=== PATIENT | female | born 1950 | race Caucasian/White ===

== ENCOUNTER 2020-09-19 07:24 | Outpatient (CLI) | payer MEDICARE, SELFPAY ==
--- NOTE | ~2020-09-19 | MM_ITS ---
EXAMINATION: MM screening [facility] BI w atiya HISTORY: Screening TECHNIQUE: Craniocaudal and mediolateral oblique 3-D tomosynthesis images were obtained and synthetic 2-D images were generated. CAD analysis was submitted and interpreted. COMPARISON: Comparison to multiple prior studies sequentially, with oldest reviewed study dated 01/06. BREAST PARENCHYMAL COMPOSITION: There are scattered areas of fibroglandular density. FINDINGS: There is a new focal asymmetry in the upper aspect of the left breast on MLO view. The righ t breast is stable without evidence for malignancy. IMPRESSION: 1. No focal asymmetry upper aspect of the left breast on MLO view. 2. Additional left spot MLO, MLO and exaggerated CC views recommended. BI-RADS Category 0: Incomplete: Needs additional imaging evaluation. Reviewed, dictated and finalized at location A. NE OILER
== END 2020-09-19 07:25 | disposition home or self-care (01) ==
LOC: ANHIMG 07:29
PROVIDERS: PCP Family Medicine Adolescent Medicine; Visit Provider Family Medicine Adolescent Medicine
DX: Z12.31 Encounter for screening mammogram for malignant neoplasm of breast (principal); R92.8 Other abnormal and inconclusive findings on diagnostic imaging of breast
CPT/HCPCS: 77063; 77067

== ENCOUNTER 2020-10-20 12:05 | Outpatient (CLI) | payer MEDICARE, SELFPAY ==
--- NOTE | ~2020-10-20 | MMUS_ITS ---
EXAMINATION: MM diagnostic mammo unilat LT, US breast LT limited HISTORY: Follow-up left breast asymmetry TECHNIQUE: Additional 3-D tomosynthesis images of the left breast were performed and synthetic 2-D im ages were generated. CAD analysis was submitted and interpreted. High resolution Limited left breast ultrasound was performed. COMPARISON: Comparison to multiple prior studies sequentially, with oldest reviewed study dated 01/10. BREAST PARENCHYMAL COMPOSITION: Breast composed of scattered areas of fibroglandular density. FINDINGS: MAMMOGRAPHIC FINDINGS: There are no suspicious masses, calcifications or architectural distortion to suggest malignancy. ULTRASOUND: Limited left breast ultrasound: Normal heterogeneous echotexture of focal mass. IMPRESSION: 1. No mammographic or sonographic evidence for malignancy in the left breast. 2. Routine yearly screening mammogram and regular clinical breast examination are recommended. BI-RADS Category 2: Benign finding(s). Reviewed, dictated and finalized at location A. E DELIVERY SERVICE DRIVER IMPRESSION: 1. No mammographic or sonographic evidence for malignancy in the left breast. 2. Routine yearly screening mammogram and regular clinical breast examination a re recommended. BI-RADS Category 2: Benign finding(s).
== END 2020-10-20 12:06 | disposition home or self-care (01) ==
LOC: ANHIMG 12:09
PROVIDERS: PCP Family Medicine Adolescent Medicine; Visit Provider Family Medicine Adolescent Medicine
DX: R92.8 Other abnormal and inconclusive findings on diagnostic imaging of breast (principal)
CPT/HCPCS: 76642; 77065

== ENCOUNTER 2021-03-27 09:48 | Emergency (ER) | payer MEDICARE, SELFPAY ==
--- NOTE | 2021-03-27 09:55 | ED.ABDPAIN ---
HPI - Abdominal Pain General Chief Complaint: Abdominal Pain Stated Complaint: Abdominal Pain Time Seen by Provider: 03/27/21 09:55 Source: patient and RN notes reviewed Mode of arrival: ambulatory Limitations: no limitations History of Present Illness HPI narrative: 70-year-old female presents to [facility] with complaints of abdominal pain for the last 24 hours. States she did have a bowel movement this morning.Patient states that she has a partial bowel obstruction History of diabetes, hypertension, high cholesterol. Related Data Home Medications Medication Instructions Recorded Confirmed atorvastatin 20 mg PO DAILY 03/27/21 03/27/21 bimatoprost [Lumigan] 1 drp EACH EYE HS 03/27/21 03/27/21 brinzolamide [Azopt] 1 drp EACH EYE BID 03/27/21 03/27/21 calcium carbonate-vitamin D3 1 tablet PO DAILY 03/27/21 03/27/21 [Calcium 500 + D] fenofibrate 160 mg PO DAILY 03/27/21 03/27/21 insulin detemir U-100 [Levemir 60 unit SUBCUT DAILY 03/27/21 03/27/21 FlexTouch U-100 Insuln] metformin 1,000 mg PO BID 03/27/21 03/27/21 metoprolol tartrate 50 mg PO BID 03/27/21 03/27/21 mirabegron [Myrbetriq] 25 mg PO DAILY 03/27/21 03/27/21 olmesartan-hydrochlorothiazide 1 tablet PO DAILY 03/27/21 03/27/21 omeprazole 20 mg PO DAILY 03/27/21 03/27/21 sitagliptin [Januvia] 100 mg PO DAILY 03/27/21 03/27/21 Allergies Allergy/AdvReac Type Severity Reaction Status Date / Time nitrofurantoin Allergy Intermediate VOMITING Verified 03/27/21 10:09 ANTIHISTAMINE Allergy Mild RAPID Uncoded 03/27/21 10:09 HEART RATE Review of Systems Review of Systems: All systems reviewed & are unremarkable except as noted in HPI and below Constitutional: Constitutional: Reports no additional constitutional complaints, Denies chills and Denies fever(s) Eyes: Eyes: Reports no additional eye complaints ENT: Reports system reviewed and no additional complaints, except as documented Cardiovascular: Cardiovascular: Reports no additional cardiovascular complaints and Denies chest pain Respiratory: Respiratory: Reports no additional respiratory complaints, Denies cough and Denies dyspnea Gastrointestinal: Gastrointestinal: Reports as per HPI, Reports abdominal pain, Reports nausea and Denies vomiting Musculoskeletal: Musculoskeletal: Reports no additional musculoskeletal complaints and Denies back pain Integumentary/Breasts: Skin/Breast: Reports system reviewed and no additional complaints, except as docu, Denies erythema and Denies rash Neurologic: Reports system reviewed and no additional complaints, except as documented and Denies dizziness Psychiatric: Psychiatric: Reports no additional psychiatric complaints Allergic/Immunologic: Allergic/Immunologic: Reports no additional allergic/immunologic complaints PMFSH Past Medical History Medical History (Updated 03/27/21 @ 10:23 by Sariah Cano) Calcium deficiency Diabetes GERD (gastroesophageal reflux disease) High cholesterol Hypertension Surgical History Surgical History (Updated 03/27/21 @ 10:08 by Sariah Cano) H/O: hysterectomy History of bladder surgery Hx of cholecystectomy Comments At the time of my signature, I reviewed and agree with the nursing past medical, surgical, social, and family history. There is no relevant family history pertinent to the patient complaint. Exam Const: General: cooperative, well developed, alert, acute distress moderate, anxious and ill appearing acutely Nutritional Appearance: well nourished Orientation/consciousness: patient oriented x3 Limitations: no limitations HENMT: Head: normal to inspection Eyes: Pupils: Equal, round and reactive pupils present Neck: Neck: normal visual inspection and no lymphadenopathy Chest: Chest palpation & inspection: normal inspection of the chest Resp: Effort & Inspection: normal respiratory effort and no use of accessory muscles Auscultation: clear to auscultation bilaterally, no crackles, no rales, no
[2021-03-27 09:57] VITALS: BP 140/87; PULSE 120; RESP 16; TEMP 36.6; O2SAT 99
== END 2021-03-27 10:08 | disposition short-term general hospital (02) ==
PROVIDERS: Emergency Provider Nurse Practitioner; PCP Family Medicine Adolescent Medicine
DX: R10.30 Lower abdominal pain, unspecified (principal); R10.31 Right lower quadrant pain; E11.9 Type 2 diabetes mellitus without complications; K21.9 Gastro-esophageal reflux disease without esophagitis; E78.00 Pure hypercholesterolemia, unspecified; I10 Essential (primary) hypertension; E58 Dietary calcium deficiency
CPT/HCPCS: 99212; G0463

== ENCOUNTER 2021-03-27 10:20 | Emergency (ER) | payer MEDICARE, SELFPAY ==
[2021-03-27] VITALS (8 sets, daily range): BP systolic 106–129; BP diastolic 58–78; PULSE 72–88; RESP 18; TEMP 36.4; O2SAT 94–99
--- NOTE | ~2021-03-27 | CT_ITS ---
EXAMINATION: CT abdomen pelvis w con DATE: 03/27/2021 11:43 INDICATION: Generalized abdominal pain. Nausea, vomiting and diarrhea. TECHNIQUE: Computed tomography (CT) of the abdomen and pelvis was performed with 100 cc Omnipaque 350 intravenous contrast. Automated exposure control and iterative reconstruction technique were employe d. Exam dose: 388.41 mGy-cm total exam DLP. COMPARISON: 07/24/2018 CT abdomen pelvis FINDINGS: New 5 mm left lower lobe pulmonary nodule since 07/24/2018, likely a calcified pulmonary gra nuloma. Small calcified lingular pulmonary granuloma. Mild discoid atelectasis or scarring involving primarily the right lower lobe. Normal heart size. No pericardial or pleural effusion. Status post cholecystectomy. No bile duct or pancreatic duct dilatation. Diffuse hepatic steatosis. No hepatic, splenic, pancreatic, and adrenal space-occupying mass lesion. Occasional right renal cyst s measuring up to 1.5 cm. No urinary tract calculus or hydroureteronephrosis. Normal caliber of the abdominal aorta. No intraperitoneal or retroperitoneal or pelvic mass lesion or adenopathy or ascites. There is mild colonic diverticulosis. There is diffuse colonic wall thickening. There is some pericho lecystic fat stranding in the sigmoid region. Mild diverticulitis is not excluded. No bowel obstructi on or intraperitoneal free air is evident. Status post hysterectomy. The urinary bladder is unremarkable. Included skeletal structures are unremarkable, without evidence of osteolytic or osteoblastic lesions . IMPRESSION: Nonspecific: wall thickening; mild diverticulosis of the colon There is mild pericolic fat stranding in the sigmoid area; mild diverticulitis is not excluded Status post cholecystectomy Hepatic steatosis Right renal cysts Status post hysterectomy Reviewed, dictated and finalized at Location A. Reviewed, dictated and finalized at location A.
[2021-03-27 10:33] LABS: Basophils Absolute Auto 0.1 K/mm3 (0.0-0.1); Basophils Percent Auto 0.5 % (0.2-1.2); Eosinophils Absolute Auto 0.3 K/mm3 (0-0.3); Eosinophils Percent Auto 2.6 % (0-4.4); Hematocrit 44.1 % (37.0-47.0); Hemoglobin 14.7 g/dL (12.0-15.0); Immature Granulocyte Absolute 0.04 K/mm3 (0.00-0.031); Immature Granulocyte Percent A 0.4 % (0-0.5); Lymphocytes Absolute Auto 2.78 K/mm3 (0.9-3.2); Mean Corpuscular HGB Conc 33.3 g/dl (32-36); Mean Corpuscular Hemoglobin 29.7 pg (26-34); Mean Corpuscular Volume 89.1 fl (80-100); Mean Platelet Volume 9.5 fl (7.4-10.4); Monocytes Absolute Auto 0.9 K/mm3 (0.1-0.6); Monocytes Percent Auto 8.3 % (2.6-8.5); Neutrophils Absolute Auto 6.3 K/mm3 (1.3-6.7); Neutrophils Percent Auto 61.2 % (45.5-73.1); Platelet Count Result 296 k/mm3 (150-375); Red Blood Count 4.95 M/mm3 (4.2-5.4); Red Cell Distribution Width 13.2 % (11.5-14.5); White Blood Count 10.3 K/mm3 (4.5-10.0)
[2021-03-27 10:43] LABS: Alanine Aminotransferase 17 U/L (4-35); Albumin Level 4.8 g/dL (3.5-5.1); Alkaline Phosphatase 55 U/L (38-126); Anion Gap 16 mmol/L (8-16); Aspartate Amino Transferase 35 U/L (14-36); Bilirubin,Total 0.8 mg/dL (0.2-1.3); Blood Urea Nitrogen 19 mg/dL (7-17); Calcium 10.8 mg/dL (8.4-10.2); Carbon Dioxide 24 mmol/L (22-30); Chloride 98 mmol/L (98-107); Estimated CRCL calculation 36 ml/min; Estimated Glomerular Filt Rate 49; Glucose 179 mg/dL (65-105); Lipase 100 U/L (23-300); Potassium 3.4 mmol/L (3.4-5.0); Sodium 138 mmol/L (137-145)
[2021-03-27 10:47] LABS: Add Urine Microscopic? YES; Appearance Urine Cloudy (Clear); Bacteria Urine Trace /hpf; Bilirubin Urine Negative (Negative); Blood Urine Negative (Negative); Color Urine Amber (Yellow); Glucose Urine UA Negative (Negative); Ketones Urine Negative (Negative); Leukocyte Esterase Ur Trace LEU/UL (Negative); Mucus Urine Rare /lpf; Nitrate Urine Negative (Negative); Protein Urine 1+ mg/dL (Negative); RBC Urine 0-2 /hpf (0-2); Specific Grav Ur 1.023 (1.001-1.035); Squamous Epithelial Cell Urine Occasional /hpf (Few); Urobilinogen Urine Negative mg/dL (<2.0)
[2021-03-27] MEDS: LACTATED RINGERS 1,000 ML 999 ML IV CONT (11:15)
--- NOTE | 2021-03-27 11:31 | PC.NURSE ---
assumed care of patient
--- NOTE | 2021-03-27 11:46 | ED.ABDPAIN ---
HPI - Abdominal Pain General Chief Complaint: Abdominal Pain Stated Complaint: Abd Pain Time Seen by Provider: 03/27/21 11:02 Source: patient Mode of arrival: ambulatory Limitations: no limitations History of Present Illness HPI narrative: Patient is a 68-year-old female complaining of lower abdominal pain, 8 out of 10, dull, nonradiating started yesterday. Patient denies any chest pain, shortness of breath, nausea, vomiting, diarrhea, fever, chills or urinary symptoms. Related Data Home Medications Medication Instructions Recorded Confirmed atorvastatin 20 mg PO DAILY 03/27/21 03/27/21 bimatoprost [Lumigan] 1 drp EACH EYE HS 03/27/21 03/27/21 brinzolamide [Azopt] 1 drp EACH EYE BID 03/27/21 03/27/21 calcium carbonate-vitamin D3 1 tablet PO DAILY 03/27/21 03/27/21 [Calcium 500 + D] fenofibrate 160 mg PO DAILY 03/27/21 03/27/21 insulin detemir U-100 [Levemir 60 unit SUBCUT DAILY 03/27/21 03/27/21 FlexTouch U-100 Insuln] metformin 1,000 mg PO BID 03/27/21 03/27/21 metoprolol tartrate 50 mg PO BID 03/27/21 03/27/21 mirabegron [Myrbetriq] 25 mg PO DAILY 03/27/21 03/27/21 olmesartan-hydrochlorothiazide 1 tablet PO DAILY 03/27/21 03/27/21 omeprazole 20 mg PO DAILY 03/27/21 03/27/21 sitagliptin [Januvia] 100 mg PO DAILY 03/27/21 03/27/21 Allergies Allergy/AdvReac Type Severity Reaction Status Date / Time nitrofurantoin Allergy Intermediate VOMITING Verified 03/27/21 10:09 ANTIHISTAMINE Allergy Mild RAPID Uncoded 03/27/21 10:09 HEART RATE Review of Systems Review of Systems: All systems reviewed & are unremarkable except as noted in HPI and below Constitutional: Constitutional: Denies body ache(s), Denies chills, Denies excessive sweating, Denies fatigue, Denies fever(s), Denies headache(s), Denies lethargy, Denies malaise, Denies weakness and Denies weight loss Eyes: Eyes: Denies blurry vision, Denies change in vision and Denies loss of vision ENT: Denies dizziness, Denies ear discharge, Denies headache(s), Denies lip swelling, Denies epistaxis, Denies nasal congestion, Denies neck pain, Denies throat swelling and Denies tongue swelling Cardiovascular: Cardiovascular: Denies chest pain, Denies chest pain at rest, Denies chest pain with activity, Denies diaphoresis, Denies rapid heart rate, Denies edema, Denies irregular heart rhythm, Denies lightheadedness, Denies palpitations, Denies dyspnea and Denies dyspnea on exertion Respiratory: Respiratory: Denies chest congestion, Denies cough, Denies hemoptysis, Denies dyspnea and Denies dyspnea on exertion Gastrointestinal: Gastrointestinal: Reports abdominal pain, Denies melena, Denies hematochezia, Denies diarrhea, Denies nausea, Denies vomiting and Denies hematemesis Musculoskeletal: Musculoskeletal: Denies abnormal gait, Denies deformity, Denies joint swelling, Denies limited range of motion, Denies neck pain and Denies numbness Neurologic: Denies Abnormal speech present, Denies abnormal gait, Denies confusion, Denies dizziness, Denies headache(s), Denies focal weakness, Denies loss of vision, Denies numbness, Denies Other visual disturbances, Denies Sensory deficit (Neuro) and Denies weakness Psychiatric: Psychiatric: Denies confusion, Denies depression, Denies auditory hallucinations, Denies homicidal ideation and Denies suicidal ideation Endocrine: Endocrine: Denies cold intolerance, Denies excessive sweating, Denies fatigue, Denies heat intolerance and Denies palpitations Hematologic/Lymphatic: Hematologic/Lymphatic: Denies easy bleeding and Denies easy bruising Allergic/Immunologic: Allergic/Immunologic: Denies lip swelling, Denies throat swelling and Denies tongue swelling PMFSH Past Medical History Medical History Calcium deficiency Diabetes GERD (gastroesophageal reflux disease) High cholesterol Hypertension Surgical History Surgical History H/O: hy
[2021-03-27] MEDS: ONDANSETRON INJ 4 MG/2 ML VIAL IV PUSH (13:53)
[2021-03-27] MEDS: HYDROmorphone HCL INJ (*CRX) 1 MG/ML SYR 0.5 MG IV PUSH (13:53)
[2021-03-27] MEDS: metroNIDAZOLE 500 MG/ISO 100ML 500 MG/100 ML BAG 100 MG IVPB (14:17)
== END 2021-03-27 15:26 | disposition home or self-care (01) ==
PROVIDERS: Emergency Provider Emergency Medicine; PCP Family Medicine Adolescent Medicine
DX: K57.92 Diverticulitis of intestine, part unspecified, without perforation or abscess without bleeding (principal); E11.9 Type 2 diabetes mellitus without complications; K21.9 Gastro-esophageal reflux disease without esophagitis; I10 Essential (primary) hypertension; E78.00 Pure hypercholesterolemia, unspecified; E58 Dietary calcium deficiency; Z79.4 Long term (current) use of insulin; Z79.899 Other long term (current) drug therapy; K76.0 Fatty (change of) liver, not elsewhere classified; N28.1 Cyst of kidney, acquired
CPT/HCPCS: 36415; 74177; 80053; 81001; 83690; 85025; 96361; 96365; 96375; 99284; J1170; J2405; J7120; Q9967

== ENCOUNTER 2021-08-30 09:20 | Outpatient (CLI) | payer MEDICARE, SELFPAY ==
--- NOTE | 2021-08-30 13:32 | NEURO_ITS ---
PATIENT NUMBER: # [id number] IMPRESSION: # Complains of right 5th and 4th fingers numbness. # Known to be diabetic # Right ulnar neuropathy across the elbow. # Mild right Carpal Tunnel Syndrome Nerve Conduction Studies Anti Sensory Summary Table Stim Site NR Peak (ms) P-T Amp (?V) Site1 Site2 Delta-P (ms) Dist (cm) Blayne (m/s) Right Median Anti Sensory (2-3nd Digit) Wrist 3.0 48.3 Wrist 2-3nd Digit 3.0 14.0 47 Wrist 2.8 52.0 Wrist 2-3nd Digit 3.0 14.0 47 Right Radial Anti Sensory (Base 1st Digit) Wrist 2.5 14.3 Wrist Base 1st Digit 2.5 0.0 Right Ulnar Anti Sensory (5th Digit) Wrist 2.4 55.9 Wrist 5th Digit 2.4 14.0 58 Motor Summary Table Stim Site NR Onset (ms) O-P Amp (mV) Site1 Site2 Delta-0 (ms) Dist (cm) Blayne (m/s) Right Median Motor (Abd Poll Brev) Wrist 3.9 2.1 Elbow Wrist 4.3 25.0 58 Elbow 8.2 1.6 Right Ulnar Motor (Abd Dig Minimi) Wrist 2.1 5.6 A Elbow Wrist 5.2 25.0 48 A Elbow 7.3 4.2 B Elbow Wrist 3.6 19.0 53 B Elbow 5.7 3.3 F Wave Studies NR F-Lat (ms) L-R F-Lat (ms) Right Median (Mrkrs) (Abd Poll Brev) 28.21 Right Ulnar (Mrkrs) (Abd Dig Min) 29.47 EMG Side Muscle Nerve Root Ins Act Fibs Amp Dur Recrt Comment Right 1stDorInt Ulnar C8-T1 Nml Nml Incr Nml Reduced Right Ext Indicis Radial (Post Int) C7-8 Nml Nml Nml Nml Nml Right Ext Digitorum Radial (Post Int) C7-8 Nml Nml Nml Nml Nml Right BrachioRad Radial C5-6 Nml Nml Nml Nml Nml Right PronatorTeres Median C6-7 Nml Nml Nml Nml Nml Right Abd Poll Brev Median C8-T1 Nml Nml Incr Nml Reduced Right ABD Dig Min Ulnar C8-T1 Nml Nml Incr Nml Reduced Right Abd Poll Long Radial (Post Int) C7-8 Nml Nml Nml Nml Nml MTDD
== END 2021-08-30 09:21 | disposition home or self-care (01) ==
LOC: ANHNEURO 09:23
PROVIDERS: PCP Family Medicine Adolescent Medicine; Visit Provider Family Medicine Adolescent Medicine
DX: R20.0 Anesthesia of skin (principal); G56.01 Carpal tunnel syndrome, right upper limb; G56.21 Lesion of ulnar nerve, right upper limb
CPT/HCPCS: 95886; 95909

== ENCOUNTER 2021-10-31 10:09 | Outpatient (CLI) | payer MEDICARE, SELFPAY ==
--- NOTE | 2021-10-31 | ECG_ITS ---
Measurements Intervals [place] Rate: 70 P: 43 SC: 147 QRS: 15 QRSD: 86 T: 51 QT: 388 QTc: 421 Interpretive Statements SINUS RHYTHM BASELINE ARTIFACT- II, III, AVF, V3-V6 NORMAL ECG Electronically Signed On 10-31-2021 10:58:48 HULL GRINDER by Nahun Weeks D.O.
[2021-10-31 11:12] LABS: Anion Gap 10 mmol/L (8-16); Blood Urea Nitrogen 29 mg/dL (7-17); Calcium 10.8 mg/dL (8.4-10.2); Carbon Dioxide 26 mmol/L (22-30); Chloride 101 mmol/L (98-107); Estimated Glomerular Filt Rate 44; Glucose 151 mg/dL (65-110); Potassium 3.9 mmol/L (3.4-5.0); Sodium 137 mmol/L (137-145)
== END 2021-10-31 10:10 | disposition home or self-care (01) ==
PROVIDERS: PCP Family Medicine Adolescent Medicine; Visit Provider Orthopaedic Surgery Hand Surgery
DX: M25.521 Pain in right elbow (principal)
CPT/HCPCS: 36415; 80048; 93005

== ENCOUNTER 2021-11-08 08:26 | Outpatient (CLI) | payer MEDICARE, SELFPAY ==
--- NOTE | ~2021-11-08 | MM_ITS ---
EXAMINATION: MM screening [facility] BI w atiya HISTORY: Screening TECHNIQUE: Craniocaudal and mediolateral oblique 3-D tomosynthesis images were obtained and synthetic 2-D images were generated. CAD analysis was submitted and interpreted. COMPARISON: Comparison to multiple prior studies sequentially, with oldest reviewed study dated . . BREAST PARENCHYMAL COMPOSITION: There are scattered areas of fibroglandular density. FINDINGS: There is no evidence of suspicious mass, calcification, or architectural distortion to sugg est malignancy in either breast. There has been no suspicious interval change. IMPRESSION: 1. No mammographic evidence of malignancy. 2. Recommend routine screening mammography in one year. BI-RADS Category 1: Negative Reviewed, dictated and finalized at location A. GAGE LOAN OFFICER ORIGINATOR
== END 2021-11-08 08:27 | disposition home or self-care (01) ==
PROVIDERS: PCP Family Medicine Adolescent Medicine; Visit Provider Family Medicine Adolescent Medicine
DX: Z12.31 Encounter for screening mammogram for malignant neoplasm of breast (principal)
CPT/HCPCS: 77063; 77067

== ENCOUNTER 2022-12-19 16:40 | Outpatient (CLI) | payer MEDICARE, SELFPAY ==
--- NOTE | ~2022-12-19 | DEXA_ITS ---
Bone Density Report Name: PRESTON MAZA Age: 72 Sex: Female Ethnicity: White Date of : 1950 Indication: osteopenia; parental hip fracture; height loss; hysterectomy; postmenopausal Referring Provider: NATE COLVIN Study: Bone densitometry was performed. Exam Date: December 19, 2022 Accession number: [id number] Bone Density: Region BMD T-score Z-score Classification AP Spine(L1-L4) 0.943 -0.9 1.4 Normal Femoral Neck (Left) 0.770 -0.7 1.3 Normal Total Hip (Left) 0.942 0.0 1.8 Normal Femoral Neck (Right) 0.793 -0.5 1.6 Normal Total Hip (Right) 0.903 -0.3 1.4 Normal Total Hip Mean 0.923 -0.2 1.6 Normal World Health Organization criteria for BMD impression classify patients as: Normal (T-score at or above -1.0), Osteopenia (T-score between -1.0 and -2.5), or Osteoporosis (T-score at or below -2.5). 10-year Fracture Risk: FRAX not reported because: All T-scores for Spine Total, Hip Total, Femoral Neck at or above -1.0 Previous Exams: Region Exam Age BMD T-score BMD Change BMD Change Date g/cm2 vs Baseline vs Previous AP Spine (L1-L4) 12/19/2022 72 0.943 -0.9 0.023 (2.5%) 0.023 (2.5%) 07/12/2016 66 0.920 -1.2 Total Hip(Left) 12/19/2022 72 0.942 0.0 0.054 (6.1%)* 0.054 (6.1%)* 07/12/2016 66 0.888 -0.4 Total Hip(Right) 12/19/2022 72 0.903 -0.3 0.033 (3.8%)* 0.033 (3.8%)* 07/12/2016 66 0.870 -0.6 *Denotes significance at 95% confidence level, LSC for AP Spine = 0.022 g/cm2, LSC for Total Hip = 0.027 g/cm2 Clinical Information Provided by Patient: Parent has had a hip fracture Has used the following medications: Calcium Has the following medical conditions: Hysterectomy Patient maximum height was 63 Menopause Age: 34 Drinks caffeinated beverages Onset of menses at age 8 Number of children 5 Impression: The patient has normal bone mass. The patient has risk factors, including: parental hip fracture. No significant bone loss was observed. Discussion: BONE DENSITY IS ABOVE THE MINIMUM DESIRABLE LEVEL AT ALL SKELETAL SITES TESTED. This patient?s bone mineral density is above the minimum desirable level (T-score -1.0 or better) at all sites measured. The patient should follow a healthful lifestyle (good nutrition with adequate calcium and vitamin D, and appropriate weight-bearing exercise). Follow-Up: Consider repeating this study in 5 years or sooner if there is some new clinical indication.
== END 2022-12-19 16:41 | disposition home or self-care (01) ==
PROVIDERS: PCP Family Medicine Adolescent Medicine; Visit Provider Physician Assistant
DX: M85.89 Other specified disorders of bone density and structure, multiple sites (principal)
CPT/HCPCS: 77080

== ENCOUNTER 2023-01-09 07:34 | Outpatient (CLI) | payer MEDICARE, SELFPAY ==
--- NOTE | ~2023-01-09 | MM_ITS ---
EXAMINATION: MM screening [facility] BI w atiya HISTORY: Screening mammogram TECHNIQUE: Craniocaudal and mediolateral oblique 3-D tomosynthesis images were obtained and synthetic 2-D images were generated. CAD analysis was submitted and interpreted. COMPARISON: 11/08/2021, 10/20/2020, 09/19/2020 BREAST PARENCHYMAL COMPOSITION: There are scattered areas of fibroglandular density. FINDINGS: No suspicious mass, calcification, or architectural distortion are identified in either radha ast to suggest malignancy. There has been no suspicious interval change. IMPRESSION: 1. No mammographic evidence of malignancy. 2. Recommend routine screening mammography in one year. BI-RADS Category 1: Negative Reviewed, dictated and finalized at location A.
== END 2023-01-09 07:35 | disposition home or self-care (01) ==
PROVIDERS: PCP Family Medicine Adolescent Medicine; Visit Provider Family Medicine Adolescent Medicine
DX: Z12.31 Encounter for screening mammogram for malignant neoplasm of breast (principal)
CPT/HCPCS: 77063; 77067

== ENCOUNTER → 2023-03-05 07:44 | Outpatient (CLI) | payer MEDICARE, SELFPAY ==
--- NOTE | ~2023-03-05 | XR_ITS ---
Left Knee Technique: AP, lateral, and sunrise views were obtained. Clinical History: Pain Findings: No fracture or dislocation is seen. Osseous alignment is anatomic. Minimal tricompartmental degenerative spurring noted. Chondrocalcinosis of menisci noted. No joint effusion is seen. Impression: Minimal tricompartmental degenerative spurring. Chondrocalcinosis of the menisci. Reviewed, dictated and finalized at location . Impression: Minimal tricompartmental degenerative spurring. Chondrocalcinosis of the menisci.
== END ==
PROVIDERS: PCP Nurse Practitioner Family; Visit Provider Nurse Practitioner Family
DX: M76.892 Other specified enthesopathies of left lower limb, excluding foot (principal); M11.262 Other chondrocalcinosis, left knee
CPT/HCPCS: 73562

== ENCOUNTER 2023-03-07 17:49 | Emergency (ER) | payer MEDICARE, SELFPAY ==
[2023-03-07 18:02] VITALS: BP 128/70; PULSE 107; RESP 16; TEMP 37.9; O2SAT 97
--- NOTE | 2023-03-07 18:49 | ED.URI ---
HPI - URI/Sore Throat General Chief Complaint: Upper Respiratory Infection Stated Complaint: Cough/Ears Irritation/Chest Time Seen by Provider: 03/07/23 18:35 Source: patient and RN notes reviewed Mode of arrival: ambulatory Limitations: no limitations History of Present Illness HPI Narrative: Patient presents today complaining of a 1+ week history of productive cough, nasal congestion, bilateral ear pressure, chest pressure, shortness of breath that is present after coughing episodes in with exertion, decreased appetite. Denies fever at home. Denies history of asthma or COPD. She is a nonsmoker. She has been taking Robitussin and Mucinex home without relief. History of asthma and states her blood sugars are not well controlled. Related Data Home Medications Medication Instructions Recorded Confirmed bimatoprost 0.01 % eye drops 1 drp EACH EYE HS 03/27/21 03/03/23 (Lumigan) brinzolamide 1 % eye 1 drp EACH EYE BID 03/27/21 03/03/23 drops,suspension (Azopt) calcium carbonate 500 mg-vitamin 1 tablet PO DAILY 03/27/21 03/03/23 D3 5 mcg (200 unit) tablet (Calcium 500 + D) insulin syringe-needle U-100 1 mL 03/07/23 03/07/23 29 gauge x 1/2 (Comfort EZ Insulin Syringe) semaglutide 3 mg tablet (Rybelsus) mg PO 03/07/23 sitagliptin phosphate 100 mg mg 03/07/23 tablet (Januvia) Allergies Allergy/AdvReac Type Severity Reaction Status Date / Time nitrofurantoin Allergy Intermediate VOMITING Verified 03/07/23 17:59 DOROTHY Inhibitors AdvReac Unknown Cough Verified 03/07/23 17:59 amitriptyline AdvReac Unknown Drowsy Verified 03/07/23 17:59 amoxicillin [From Augmentin] AdvReac Unknown Diarrhea Verified 03/07/23 17:59 clavulanic acid AdvReac Unknown Diarrhea Verified 03/07/23 17:59 [From Augmentin] pseudoephedrine AdvReac Unknown Palpitation Verified 03/07/23 17:59 [From Sudafed] s ANTIHISTAMINE Allergy Mild RAPID Uncoded 03/07/23 17:59 HEART RATE Review of Systems Review of Systems: CONSTITUTIONAL: Denies body aches, fever, chills, or sweats. EYES: Denies visual changes, redness, or discharge. ENT: Denies rhinorrhea, sore throat, or otalgia.+ congestion, ear pressure CARDIOVASCULAR: Denies chest pain, palpitations, or edema.+ chest pressure RESPIRATORY: + cough, shortness of breath GASTROINTESTINAL: Denies abdominal pain, nausea, vomiting, or diarrhea.+ decreased appetite GENITOURINARY: Denies dysuria or hematuria. SKIN: Denies rash, itching, or wounds. MUSCULOSKELETAL: Denies back pain, joint pain, or myalgia. NEUROLOGIC: Denies headache, numbness, tingling, or weakness. PSYCH: Denies depression or anxiety. [facility] Past Medical History Medical History Benign hypertension with CKD (chronic kidney disease) stage III Calcium deficiency Diabetes mellitus with stage 2 chronic kidney disease Family hx total abdominal hysterectomy/bilateral salpingo-oophorectomy GERD (gastroesophageal reflux disease) Hepatic steatosis CT 07/2018 High cholesterol Hx of thrombophlebitis Hypertension Long-term current use of insulin for diabetes mellitus Osteopenia of multiple sites Overactive bladder Stage 3b chronic kidney disease (CKD) Surgical History Surgical History H/O: hysterectomy History of bladder surgery History of bunionectomy Hx of cholecystectomy Hx of decompression of ulnar nerve Family History Family History Grandparent Acute myocardial infarction Breast cancer Carcinoma of colon Diabetes mellitus Hypertension Glaucoma Mother Acute myocardial infarction Cerebrovascular accident Diabetes mellitus Heart disease Other Breast cancer Sibling Thyroid cancer Other Colon polyp Social History Social History Smoking status: Never sm
== END 2023-03-07 18:59 | disposition home or self-care (01) ==
PROVIDERS: Emergency Provider Nurse Practitioner; PCP Family Medicine Adolescent Medicine
DX: R09.81 Nasal congestion (principal); R05.1 Acute cough; I12.9 Hypertensive chronic kidney disease with stage 1 through stage 4 chronic kidney disease, or unspecified chronic kidney disease; N18.32 Chronic kidney disease, stage 3b; K21.9 Gastro-esophageal reflux disease without esophagitis; E11.22 Type 2 diabetes mellitus with diabetic chronic kidney disease; Z79.4 Long term (current) use of insulin
CPT/HCPCS: 99213; G0463

== ENCOUNTER 2023-05-22 13:00 | Outpatient (CLI) | payer MEDICARE, SELFPAY ==
--- NOTE | 2023-05-22 | ECG_ITS ---
Measurements Intervals [place] Rate: 92 P: 57 MN: 164 QRS: 34 QRSD: 84 T: 46 QT: 346 QTc: 430 Interpretive Statements SINUS RHYTHM LOW QRS VOLTAGE IN PRECORDIAL LEADS [QRS DEFLECTION < 1.0 mV IN CHEST LEADS] OTHERWISE NORMAL ECG COMPARED TO ECG 10/31/2021 10:42:27 NO SIGNIFICANT CHANGES Electronically Signed On 05-22-2023 14:39:01 CDT by Santana Arias M.D.
[2023-05-22 14:07] LABS: Anion Gap 11 mmol/L (8-16); Blood Urea Nitrogen 40 mg/dL (7-17); Calcium 10.4 mg/dL (8.4-10.2); Carbon Dioxide 26 mmol/L (22-30); Chloride 101 mmol/L (98-107); Estimated Glomerular Filt Rate 34; Glucose 128 mg/dL (65-110); Sodium 138 mmol/L (137-145)
== END 2023-05-22 13:01 | disposition home or self-care (01) ==
PROVIDERS: PCP Family Medicine Adolescent Medicine; Visit Provider Orthopaedic Surgery
DX: Z01.818 Encounter for other preprocedural examination (principal)
CPT/HCPCS: 36415; 80048; 93005

== ENCOUNTER 2024-03-10 15:13 | Outpatient (CLI) | payer MEDICARE, SELFPAY ==
--- NOTE | ~2024-03-10 | MM_ITS ---
EXAMINATION: MM screening [facility] BI w atiya HISTORY: Screening TECHNIQUE: Craniocaudal and mediolateral oblique 3-D tomosynthesis images were obtained and synthetic 2-D images were generated. CAD analysis was submitted and interpreted. COMPARISON: Comparison to multiple prior studies sequentially, with oldest reviewed study dated 05/12. BREAST PARENCHYMAL COMPOSITION: Not dense: There are scattered areas of fibroglandular density. FINDINGS: There is no evidence of suspicious mass, calcification, or architectural distortion to sugg est malignancy in either breast. There has been no suspicious interval change. IMPRESSION: 1. No mammographic evidence of malignancy. 2. Recommend routine screening mammography in one year. BI-RADS Category 1: Negative Reviewed, dictated and finalized at location B.
== END 2024-03-10 15:14 | disposition home or self-care (01) ==
PROVIDERS: PCP Family Medicine Adolescent Medicine; Visit Provider Family Medicine Adolescent Medicine
DX: Z12.31 Encounter for screening mammogram for malignant neoplasm of breast (principal)
CPT/HCPCS: 77063; 77067

== ENCOUNTER 2024-08-11 11:11 | Outpatient (CLI) | payer MEDICARE, SELFPAY | END 2024-08-11 11:12 | disposition home or self-care (01) | PROVIDERS: PCP Family Medicine Adolescent Medicine; Visit Provider Family Medicine | DX: R00.2 Palpitations (principal) | CPT/HCPCS: 93242 ==

== ENCOUNTER 2024-09-01 08:46 | Outpatient (CLI) | payer MEDICARE, SELFPAY ==
--- NOTE | ~2024-09-01 | NM_ITS ---
EXAMINATION: NM beto stress w perfusion DATE: 09/01/2024 10:38 INDICATION: Chest pain TECHNIQUE: Rest images were obtained following intravenous administration of 10.0 mCi Tc99m tetrofosm in (Myoview). The patient was infused intravenously with Lexiscan (Regadenoson). Then, 31.1 mCi Tc99m tetrofosmin (Myoview) was administered intravenously, and stress images were obtained. Data was magnus nstructed into short axis and horizontal and vertical long axis SPECT images. Gated SPECT images were also obtained. COMPARISON: None. FINDINGS: There is no definite reversible or fixed perfusion abnormality to suggest ischemia or infar ction. There is normal left ventricular chamber size, wall motion and ejection fraction. Left ventr icular ejection fraction measures >70%. IMPRESSION: 1. Normal myocardial perfusion at rest and during stress. 2. Left ventricular ejection fraction measuring >70%. Reviewed, dictated and finalized at location [facility]. [employer]
--- NOTE | 2024-09-01 08:51 | EST_ITS ---
Patient Info Name: Tuyet Drew Age: 74 years : 1950 Gender: Female Ht: 61 in Wt: 155 lbs BSA: 1.76 m2 HR: 71 bpm BP: 133 / 67 mmHg Exam Date: 09/01/2024 9:49 AM Exam Location: [facility] Patient Status: Outpatient Admit Date: 09/01/2024 Staff Ordering Physician: Glenn Clark DO Attending Provider: Glenn Clark DO Exercise Technologist: Cherelle Quiñonez RDCS Exercise Physician: Nahun Weeks DO Exam Type: CA stress beto w NM Study Info A regadenoson stress test was performed. Summary 1. 1. Negative lexiscan stress test for ischemic ST changes by ECG criteria. 2. 2. Stable hemodynamics throughout the test. 3. 3. Nuclear scan to follow and will be reported separately. Please correlate with it. 4. 4. Patient informed of the above results. Protocol: Lexiscan Stress ECG Details Stage: REST Duration (min): 1 min : 48 sec HR (bpm): 70 SBP (mmHg): 133 DBP (mmHg): 67 Stage: REST Duration (min): 9 min : 8 sec HR (bpm): 76 SBP (mmHg): 133 DBP (mmHg): 67 Stage: STAGE 1 Duration (min): 0 min : 59 sec HR (bpm): 102 SBP (mmHg): 140 DBP (mmHg): 63 Stage: RECOVERY Duration (min): 1 min : 0 sec HR (bpm): 107 SBP (mmHg): 140 DBP (mmHg): 63 Stage: RECOVERY Duration (min): 2 min : 0 sec HR (bpm): 102 SBP (mmHg): 140 DBP (mmHg): 63 Stage: RECOVERY Duration (min): 3 min : 0 sec HR (bpm): 109 SBP (mmHg): 138 DBP (mmHg): 67 Stage: RECOVERY Duration (min): 3 min : 6 sec HR (bpm): 109 SBP (mmHg): 138 DBP (mmHg): 67 Rest HR: 76 bpm Peak HR: 110 bpm Rest Sys BP: 133 mmHg Peak Sys BP: 140 mmHg Max Pred HR: 144 bpm % Max Pred HR: 76 % Target HR: 122 bpm Max RPP: 15,400 bpm*mmHg Termination Reason: Completed protocol Cardiac Symptoms: Shortness of breath Total Time: 1 min : 0 sec Rest Orantes BP: 67 mmHg Peak Orantes BP: 63 mmHg Total Dose: 0.4 mg Resting ECG Sinus rhythm. Stress ECG No ST changes. Arrhythmias None. Report Signatures
== END 2024-09-01 08:47 | disposition home or self-care (01) ==
LOC: ANHCARD 08:48
PROVIDERS: PCP Family Medicine Adolescent Medicine; Visit Provider Family Medicine
DX: I51.9 Heart disease, unspecified (principal); R07.9 Chest pain, unspecified
CPT/HCPCS: 78452; 93017; A9502; J2785

== ENCOUNTER 2024-11-06 11:07 | Emergency (ER) | payer MEDICARE, SELFPAY ==
[2024-11-06 11:15] VITALS: BP 134/70; PULSE 81; RESP 18; TEMP 36.8; O2SAT 97
--- NOTE | 2024-11-06 11:33 | ED_ITS ---
HPI - General Adult General Chief complaint: Dental/Oral Stated complaint: Left Side Facial Swelling Time Seen by Provider: 11/06/24 11:33 Source: patient, RN notes reviewed and old records reviewed Mode of arrival: ambulatory Limitations: no limitations History of Present Illness HPI narrative: 74-year-old female presents to the [facility] with left-sided facial swelling since yesterday. Thought it was sinuses that she took some sinus medication. Onset (ago): day(s) (1) Related Data Home Medications ?Medication ?Instructions ?Recorded ?Confirmed ?Last Taken ?Type bimatoprost 0.01 % eye drops 1 drp EACH EYE HS 03/27/21 10/28/24 Unknown History (Lumigan) brinzolamide 1 % eye 1 drp EACH EYE BID 03/27/21 10/28/24 Unknown History drops,suspension (Azopt) Allergies Allergy/AdvReac Type Severity Reaction Status Date / Time nitrofurantoin Allergy Intermediate VOMITING Verified 11/06/24 11:11 DOROTHY Inhibitors AdvReac Unknown Cough Verified 11/06/24 11:11 amitriptyline AdvReac Unknown Drowsy Verified 11/06/24 11:11 amoxicillin (From Augmentin) AdvReac Unknown Diarrhea Verified 11/06/24 11:11 clavulanic acid (From AdvReac Unknown Diarrhea Verified 11/06/24 11:11 Augmentin) pseudoephedrine (From AdvReac Unknown Palpitation Verified 11/06/24 11:11 Sudafed) s Review of Systems 2 Review of Systems: All systems reviewed & are unremarkable except as noted in HPI and below Constitutional: Constitutional: Reports no additional constitutional complaints ENT: Reports as per HPI Cardiovascular: Cardiovascular: Reports no additional cardiovascular complaints, Denies chest pain and Denies dyspnea Respiratory: Respiratory: Reports no additional respiratory complaints, Denies chest congestion, Denies cough and Denies dyspnea Musculoskeletal: Musculoskeletal: Reports no additional musculoskeletal complaints Integumentary/Breasts: Skin/Breast: Reports system reviewed and no additional complaints, except as docu PMFSH Past Medical History Medical History Hx of thrombophlebitis Family hx total abdominal hysterectomy/bilateral salpingo-oophorectomy Hepatic steatosis CT 07/2018 Overactive bladder Stage 3b chronic kidney disease (CKD) Calcium deficiency Hypertension High cholesterol Surgical History Surgical History Hx of decompression of ulnar nerve History of bunionectomy H/O: hysterectomy History of bladder surgery Hx of cholecystectomy Family History Family History Grandparent Acute myocardial infarction Breast cancer Carcinoma of colon Diabetes mellitus Hypertension Glaucoma Mother Acute myocardial infarction Cerebrovascular accident Diabetes mellitus Heart disease Other Breast cancer Sibling Thyroid cancer Other Colon polyp Social History Social History Smoking status: Never smoker Second hand tobacco smoke exposure: No Alcohol intake: never Substance use: never Substance use type: does not use Do You Feel Safe in your Home?: Yes Lack of Transportation: No Lack of Food: Never True Current Housing: I Have Housing Concerned About Future Housing: No Difficulty Paying Gas/Electric Bills: No Difficulty Paying for Meds: No Currently Unemployed: No Education: Associate Degree Difficulty w/ Childcare or Family Care: No Living arrangements: with family Occupation/Education: retired Gender identity (if verbalized by the patient): Female Sexual Orientation (if Verbalized by the Patient): Straight or Heterosexual Spiritual care concerns: No Agree to blood products: Yes Comments At the time of my signature, I reviewed and agree with the nursing past medical, surgical, social, and family history. There is no relevant family history pertinent to the patient complaint. Exam 2 Const: General: cooperative, comfortable, no acute distress, well developed, alert, ill appearing chronically; not acutely and well nourished Nutritional Appearance: well nourished Orientation/consciousness: patient oriented x3 Limitations: no limitations HENMT: Head: normal to inspection Ears: hearing grossly normal bilaterally, external ears normal, TM's normal bilaterally, EAC's normal, mastoids normal and no periauricular adenopathy Mouth: Yes lip normal, Yes tongue normal and Yes moist mucous membranes Teeth image: 1. Teeth have been removed, surrounding gingiva, swollen mildly increased redness, tender to palpation. Poor fitting dentures were noted Throat: posterior oropharynx normal, uvula midline and no uvular edema Eyes: General: appearance normal, both eyes and all related structures A lignment and Position: alignment normal Neck: Neck: normal visual inspection, full ROM, no lymphadenopathy and no meningeal signs Chest: Chest palpation & inspection: normal inspection of the chest Resp: Effort & Inspection: normal respiratory effort and able to speak in complete sentences Auscultation: clear to auscultation bilaterally, no crackles, no rales, no rhonchi and no wheezes Cardio: Rate: regular rate Skin: General skin exam: normal color and no rashes or lesions noted Neuro: General: patient oriented x3, gait normal, moves all extremities and no meningeal signs Cognition (Neuro): normal cognition Speech: normal speech Gait exam (Neuro): Normal gait present Extrem: General: normal to inspection, full ROM, capillary refill normal and normal gait Psych: Appearance: grossly normal and well kempt Mental Status: mental status grossly normal Speech and movement: Normal speech and movement present and Clear speech present Affect: normal affect Attitude: cooperative Course Course Level of Care: Express Care Visit Vital Signs Vital signs: Vital Signs Temperature 98.2 F 11/06/24 11:15 Pulse Rate 81 11/06/24 11:15 Respiratory Rate 18 11/06/24 11:15 Blood Pressure 134/70 11/06/24 11:15 Pulse Oximetry 97 11/06/24 11:15 Oxygen Delivery Room Air 11/06/24 11:15 Temperature 98.2 F 11/06/24 11:15 Pulse Rate 81 11/06/24 11:15 Respiratory Rate 18 11/06/24 11:15 Blood Pressure 134/70 11/06/24 11:15 Pulse Oximetry 97 11/06/24 11:15 Oxygen Delivery Room Air 11/06/24 11:15 Reviewed Medical Decision Making MDM Narrative Medical decision making narrative: Patient sitting comfortably in exam room. Nontoxic, vitals stable. Patient in no acute distress Patient presents for left lower jaw swelling, or tenderness. No lymphadenopathy Patient comes left lower are irritated, mildly swollen, has a very poor fitting denture. Concern for irritation from the poor fitting denture. Will cover with an antibiotic due to patient age. Encourage her to follow-up with primary care provider as well as dental provider Discharge instructions reviewed with patient, as well as provided in writing per nursing staff. The instructions also include specific and strict return/GO TO THE ER as well as f/u information. All questions have been answered, and the patient deny any further questions with discharge and discharge plan. Some parts of this dictation were generated by voice recognition software and may contain typographical and/or grammatical inaccuracies. Differential Diagnosis Differential Diagnosis: Gingiva abscess, decay, come irritation Medical Records Medical records reviewed: Yes I reviewed the external patient's medical records. Vital Signs Vital Signs: Vital Signs Temperature 98.2 F 11/06/24 11:15 Pulse Rate 81 11/06/24 11:15 Respiratory Rate 18 11/06/24 11:15 Blood Pressure 134/70 11/06/24 11:15 Pulse Oximetry 97 11/06/24 11:15 Oxygen Delivery Room Air 11/06/24 11:15 Temperature 98.2 F 11/06/24 11:15 Pulse Rate 81 11/06/24 11:15 Respiratory Rate 18 11/06/24 11:15 Blood Pressure 134/70 11/06/24 11:15 Pulse Oximetry 97 11/06/24 11:15 Oxygen Delivery Room Air 11/06/24 11:15 Reviewed Lab Data Lab results reviewed: Yes I reviewed the patient's lab results. 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, plaque induced Patient Disposition: Home, Self-Care Condition: Stable Instructions: Antibiotic Form, Periodontal Disease (DC) Additional Instructions: Take antibiotic as prescribed Use a good mouthwash such as Listerine twice daily Follow-up with dental provider Follow-up with primary care provider For new or worsening symptoms go directly to the emergency room Patient Language: [place] Prescriptions: New amoxicillin 875 mg tablet 875 mg PO Q12H Qty: 20 0RF No Action Lumigan 0.01 % drops 1 drp EACH EYE HS brinzolamide [Azopt] 1 % drops,suspension 1 drp EACH EYE BID olmesartan 40 mg tablet 40 mg PO DAILY Qty: 30 2RF sertraline 25 mg tablet 25 mg PO DAILY Qty: 90 1RF (DME) pen needle, diabetic 32 gauge x 3/16 needle See Rx Instructions .Route Qty: 100 2RF Rx Instructions: Use to inject insulin once daily atorvastatin 20 mg tablet 20 mg PO DAILY Qty: 90 3RF mirabegron [Myrbetriq] 25 mg tablet extended release 24 hr See Rx Instructions .ROUTE .COMPLEX Qty: 90 3RF Dose Instruction: Take 1 tablet by mouth once daily Rx Instructions: Take 1 tablet by mouth once daily (DME) OneTouch Verio test strips Strip See Rx Instructions .ROUTE .COMPLEX Qty: 50 3RF Dose Instruction: USE 1 STRIP TO CHECK GLUCOSE ONCE DAILY Rx Instructions: USE 1 STRIP TO CHECK GLUCOSE ONCE DAILY (DME) lancets 33 gauge misc See Rx Instructions .Route Qty: 100 2RF Rx Instructions: Use 1 daily to check blood glucose metoprolol tartrate 50 mg tablet 50 mg PO BID Qty: 180 2RF fenofibrate 160 mg tablet See Rx Instructions .ROUTE .COMPLEX Qty: 90 2RF Dose Instruction: Take 1 tablet by mouth once daily Rx Instructions: Take 1 tablet by mouth once daily omeprazole 20 mg capsule,delayed release(DR/EC) See Rx Instructions .ROUTE .COMPLEX Qty: 90 2RF Dose Instruction: Take 1 capsule by mouth once daily Rx Instructions: Take 1 capsule by mouth once daily (DME) insulin syringe-needle U-100 [BD Insulin Syringe] 1 mL 29 gauge x 1/2 syringe See Rx Instructions .Route Qty: 100 3RF Rx Instructions: daily Rybelsus 7 mg tablet See Rx Instructions .ROUTE .COMPLEX Qty: 30 7RF Dose Instruction: Take 1 tablet by mouth once daily Rx Instructions: Take 1 tablet by mouth once daily metformin 1,000 mg tablet See Rx Instructions .ROUTE .COMPLEX Qty: 180 2RF Dose Instruction: Take 1 tablet by mouth twice daily Rx Instructions: Take 1 tablet by mouth twice daily pioglitazone 30 mg tablet See Rx Instructions .ROUTE .COMPLEX Qty: 90 2RF Dose Instruction: Take 1 tablet by mouth once daily Rx Instructions: Take 1 tablet by mouth once daily insulin glargine [Lantus Solostar U-100 Insulin] 100 unit/mL (3 mL) insulin pen 70 unit subcut BID Qty: 9 5RF Follow-up/Referrals: Mauro Roque MD [Primary Care Provider] - 2 Weeks ([facility] follow- up) Stand Alone Forms: Work/School Release IP Time of Disposition: 11:43
== END 2024-11-06 11:35 | disposition home or self-care (01) ==
PROVIDERS: Emergency Provider Nurse Practitioner; PCP Family Medicine Adolescent Medicine
DX: S00.502A Unspecified superficial injury of oral cavity, initial encounter (principal); X58.XXXA Exposure to other specified factors, initial encounter; K05.10 Chronic gingivitis, plaque induced; I12.9 Hypertensive chronic kidney disease with stage 1 through stage 4 chronic kidney disease, or unspecified chronic kidney disease; N18.32 Chronic kidney disease, stage 3b; E78.00 Pure hypercholesterolemia, unspecified; K76.0 Fatty (change of) liver, not elsewhere classified; N32.81 Overactive bladder; Z86.72 Personal history of thrombophlebitis
CPT/HCPCS: 99213; G0463